=== PATIENT | female | born 1955 | race Hispanic/Latino ===

== ENCOUNTER 2019-09-07 16:04 | Emergency (ER) | payer OTHER, SELFPAY ==
[2019-09-07] MEDS ORDERED: SULFAMETHOX-TMP DS 800/160 TAB ONE (16:34)
== END 2019-09-07 16:45 | disposition home or self-care (01) ==
LOC: EDH 16:04
DX: L02.818 Cutaneous abscess of other sites (principal); I10 Essential (primary) hypertension; M81.0 Age-related osteoporosis without current pathological fracture; Z98.890 Other specified postprocedural states